=== PATIENT | male | born 1970 | race Caucasian/White ===

== ENCOUNTER 2018-10-31 16:25 | Inpatient (IN) | payer OTHER ==
[~2018-10-31] VITALS: Ht 167.6 cm; Wt 112.0 kg
[~2018-10-31 16:25] MED LIST: HYDROCHLOROTHIA25 MG PO; NORVASC10 MG PO
[2018-10-31] MEDS ORDERED: LISINOPRIL2.5 MG (16:32)
--- NOTE | 2018-10-31 16:33 | NUR ---
PTE LLEGA A ER EN AMBULANCIA, PTE MASCULINO DE 48 YRS,QUIEN REFIERE QUE TIENE DOLOR EN EL CUADRANTE INFERIOR COURTNEY QUE LE IRRADIA HACIA ESOFAGO. PTE NIEGA VOMITOS NI DIARREAS. [facility].
--- NOTE | 2018-10-31 18:38 | NUR ---
PT ALERTA Y ORIETNADO X3 ESFERAS SE LE ORIENTA SOBRE [place] Y REFIERE ENTEDER. SE NORA MUESTRAS DE ELGIN Y VENOPUNCION CON TECNICAS ASEPTICAS. SE ADMINSITRA MEDICAMENTO ORDENADO. PT [place].
[2018-11-02] MEDS ORDERED: AMOX1TAB5 PO (09:07)
[2018-11-02] MEDS ORDERED: ZANTAC300 MG PO (09:07)
[2018-11-02] MEDS ORDERED: ULTRACET PO (09:08)
== END 2018-11-02 11:05 | disposition home or self-care (01) | DRG 343 ==
LOC: ER 16:25 → SEC-K 19:34 → SURG 19:34
PROVIDERS: ADMIT Surgery
PROC: BW21ZZZ Computerized Tomography (CT Scan) of Abdomen and Pelvis (ICD-10-PCS; 2018-10-31)
PROC: 0DTJ0ZZ Resection of Appendix, Open Approach (ICD-10-PCS; principal; 2018-10-31 20:00)
DX: K35.890 Other acute appendicitis without perforation or gangrene (principal); I10 Essential (primary) hypertension; K57.30 Diverticulosis of large intestine without perforation or abscess without bleeding

== ENCOUNTER 2019-05-30 15:53 | Emergency (ER) | payer OTHER ==
[~2019-05-30] VITALS: Ht 175.3 cm; Wt 115.7 kg
[~2019-05-30 15:53] MED LIST changes: +AMOX1TAB5 PO; +LISINOPRIL2.5 MG; +ULTRACET PO; +ZANTAC300 MG PO
[2019-05-30] MEDS ORDERED: RESPTHERAMACH IH (19:53)
[2019-05-30] MEDS ORDERED: DIABETIC TUSSI118 M3 PO (19:53)
[2019-05-30] MEDS ORDERED: XOPENEX0.63 MG/3 IH (19:53)
[2019-05-30] MEDS ORDERED: AZITHROMYCIN500 MG PO (19:53)
[2019-05-30] MEDS ORDERED: CLARITIN10 M1 PO (19:53)
[2019-05-30] MEDS ORDERED: MEDROL8 MG PO (19:53)
== END 2019-05-30 20:53 | disposition home or self-care (01) ==
LOC: ER 15:53
DX: J45.998 Other asthma (principal); I10 Essential (primary) hypertension; J32.8 Other chronic sinusitis; E11.9 Type 2 diabetes mellitus without complications

== ENCOUNTER 2019-07-11 20:50 | Emergency (ER) | payer OTHER ==
[~2019-07-11] VITALS: Ht 175.3 cm; Wt 115.7 kg
[~2019-07-11 20:50] MED LIST changes: +AZITHROMYCIN500 MG PO; +CLARITIN10 M1 PO; +DIABETIC TUSSI118 M3 PO; +MEDROL8 MG PO; +RESPTHERAMACH IH; +XOPENEX0.63 MG/3 IH
== END 2019-07-11 23:50 | disposition home or self-care (01) ==
LOC: ER 20:50
DX: R07.89 Other chest pain (principal); I16.1 Hypertensive emergency; I10 Essential (primary) hypertension; J45.901 Unspecified asthma with (acute) exacerbation
CPT/HCPCS: 93005; G0378; G0379

== ENCOUNTER 2019-09-03 21:45 | Inpatient (IN) | payer OTHER ==
[~2019-09-03] VITALS: Ht 175.3 cm; Wt 113.4 kg
[2019-09-04] MEDS ORDERED: CLONIDINE HCL0.1 MG PO (13:27)
== END 2019-09-08 10:05 | disposition designated cancer center or children's hospital (05) | DRG 281 ==
LOC: ER 21:45 → ICU-2 09-04 09:53 → ICU 09-04 09:53
PROVIDERS: ADMIT Internal Medicine Cardiovascular Disease
PROC: 4A12X4Z Monitoring of Cardiac Electrical Activity, External Approach (ICD-10-PCS; principal; 2019-09-04)
PROC: B246ZZZ Ultrasonography of Right and Left Heart (ICD-10-PCS; 2019-09-04)
PROC: 3E0F7GC Introduction of Other Therapeutic Substance into Respiratory Tract, Via Natural or Artificial Opening (ICD-10-PCS; 2019-09-04)
PROC: 4A033R1 Measurement of Arterial Saturation, Peripheral, Percutaneous Approach (ICD-10-PCS; 2019-09-04)
DX: I21.4 Non-ST elevation (NSTEMI) myocardial infarction (principal); I16.9 Hypertensive crisis, unspecified; I10 Essential (primary) hypertension; E66.9 Obesity, unspecified; G47.33 Obstructive sleep apnea (adult) (pediatric); F10.10 Alcohol abuse, uncomplicated; D69.6 Thrombocytopenia, unspecified

== ENCOUNTER 2021-10-13 08:35 | Outpatient (CLI) | payer OTHER ==
[~2021-10-13 08:35] MED LIST changes: +CLONIDINE HCL0.1 MG PO
== END 2021-10-13 08:45 | disposition home or self-care (01) ==
LOC: PPH VACUNA 08:35
PROVIDERS: ATTEND Emergency Medicine Pediatric Emergency Medicine
DX: Z23 Encounter for immunization (principal)